=== PATIENT | female | born 1955 | race Caucasian/White ===

== ENCOUNTER 2017-01-27 20:02 | Inpatient (IN) | payer BC, OTHER ==
[~2017-01-27] VITALS: Ht 149.9 cm; Wt 89.6 kg
[~2017-01-27 20:02] MED LIST: DAYQLIQ PO; INSDGI SC; INSUINJ14 SC; LIRA18IN INJ; SIMV20TA2 PO
[2017-01-27] MEDS ORDERED: SODIUM CHLORIDE 0.9% 1000ML 1,000 ML IV STA (21:47)
[2017-01-27] MEDS ORDERED: ONDANSETRON INJ 2 MG/ML 2 ML VIAL IV STA (21:47)
[2017-01-27] MEDS ORDERED: MoRPHine SULFATE 4 MG/ML 1 ML CARP\\VIAL IV STA (21:47)
[2017-01-27 22:08] LABS: BASO % 0.1 %; BASO ABS # 0.02 K/uL (0-0.2); COMPLETE YES; EOS % 0.2 %; HEMATOCRIT 44.3 % (37-47); IG% 0.3 %; LYMPH % 11.1 %; LYMPH ABS # 2.04 K/uL (1.2-3.4); MEAN CELL VOLUME 86.9 fL (80-100); MEAN CORPUSCULAR HEMOGLOBIN 28.4 pg (25-34); MEAN CORPUSCULAR HGB CONC 32.7 g/dl (32-36); MEAN PLATELET VOLUME 11.4 fL (7.4-10.4); MONO % 6.2 %; NEUT % 82.1 %; PLATELET COUNT 288 K/uL (130-400); WHITE BLOOD COUNT 18.41 K/uL (4.8-10.8)
[2017-01-27 22:25] LABS: BUN/CREATININE RATIO 14.2 (10-20); CREATININE 0.96 mg/dl (0.60-1.20); POTASSIUM 3.7 mmol/L (3.5-5.1)
[2017-01-27 22:27] LABS: CALCIUM 9.3 mg/dl (8.5-10.1)
[2017-01-27] MEDS ORDERED: LPT/20 PO (22:40)
--- NOTE | 2017-01-27 22:43 | DIAGNOSTIC IMAGING REPORT ---
ABDOMEN AND PELVIS CT WITHOUT CONTRAST CT DOSE: 1870.61 mGy.cm HISTORY: Pain abdominal pain, vomiting, history of colon surgery. No BM TECHNIQUE: Multiaxial CT images of the abdomen and pelvis were performed without the use of intravenous and oral contrast according to the standard department stone protocol. COMPARISON STUDY: None. FINDINGS: Lung bases are generally clear. Liver spleen and pancreas are unremarkable. The adrenal glands are normal. Prior cholecystectomy. The colonic bowel pattern is nonobstructive. There are findings of a mid sigmoid anastomotic site. There are findings of a small ventral hernia. There are several distended loops of small bowel in the anterior central abdominal region. Mild infiltrative change of the mesentery is noted at this site. These findings are potentially post operative and/or related to a partial small bowel obstructive process secondary to adhesions. Postoperative changes to the anterior abdominal wall are noted. There is no evidence for colonic distention. IMPRESSION: 1. Several mildly distended loops of small bowel in the anterior central abdominal region 2. These are associated with mild infiltrative change of the mesentery possibly on a postoperative basis as well as a small ventral hernia anteriorly raising the possibility of post procedural adhesions. 3. No evidence for colonic obstruction with postoperative changes noted in the mid sigmoid. Electronically signed by: Cheo Tovar M.D. 01/27/2017 10:42 PM Dictated Date/Time: 01/27/2017 10:36 PM
[2017-01-27] MEDS ORDERED: INSU3INJ3 SQ (22:44)
[2017-01-27] MEDS ORDERED: LORAZEPAM 2 MG/ML 1 ML VIAL IV STA (23:05)
[2017-01-27 23:49] LABS: URINE APPEARANCE CLEAR (CLEAR); URINE BILIRUBIN NEG (NEG); URINE COLOR YELLOW; URINE NITRITE NEG (NEG); URINE SPECIFIC GRAVITY 1.016 (1.000-1.030); UROBILINOGEN NEG (NEG); ZZUR CULT IF INDIC CLEAN CATCH YES
[2017-01-27 23:50] LABS: MANUAL MICROSCOPIC REQUIRED? YES; REVIEW REQ? NO
--- NOTE | 2017-01-27 23:55 | EMERGENCY ROOM VISIT NOTE ---
History Report prepared by Carlota: Jordyn Grande Under the Supervision of: Dr. Max Dueñas M.D. First contact with patient: 21:39 Chief Complaint: ABDOMINAL PAIN Stated Complaint: VOMITING,SEVERE ABD PAIN,HEADACHE History of Present Illness The patient is a 62 year old female who presents to the Emergency Room with complaints of persistent abdominal pain starting last night. Around midnight last night, she started vomiting. The nausea and vomiting comes in waves every couple of hours. Between the episodes of vomiting she is having abdominal pain on the right side. She took some Tylenol which did help a little. She had a headache. She denies any bloody stool, chest pain, or SOB. She has not been able to eat or drink well. She has not had a bowel movement in the last 2 days. She has a history of cholecystectomy and colorectal cancer. She denies any history of bowel obstruction. Her is not sick. Source of History: patient Onset: last night Position: abdomen Quality: other (pain) Timing: other (persistent) Modifying Factors (Relieving): tylenol Associated Symptoms: + headache, + nausea, + vomiting, No chest pain, No SOB , No hematochezia Review of Systems See HPI for pertinent positives & negatives. A total of 10 systems reviewed and were otherwise negative. Past Medical & Surgical Medical Problems: (1) Colorectal cancer (2) Diabetes (3) High cholesterol Surgical Problems: (1) History of hysterectomy (2) S/P cholecystectomy Family History Diabetes mellitus FHx: cancer FHx: gallbladder disease FHx: heart disease Hypertension Social History Smoking Status: Never Smoker Marital Status: Housing Status: lives with significant other Occupation Status: employed Current/Historical Medications Scheduled Atorvastatin (Atorvastatin Calcium), 10 MG PO HS Insulin Aspart (Novolog Penfill), 32 UNITS SC BID Insulin Aspart Penfill (Novolog Penfill), 44 SC QAM Insulin Detemir (Levemir Flextouch), 45 UNITS SQ HS Liraglutide (Victoza), 1.8 ML INJ QPM Allergies Coded Allergies: Iodinated Diagnostic Agents (Verified Allergy, Unknown, ANAPHYLAXIS, ) Metformin (Unverified Allergy, Unknown, DIARRHEA, 01/27/17) Sulfa Antibiotics (Verified Allergy, Unknown, HIVES, 01/27/17) Physical Exam Vital Signs Date Time Temp Pulse Resp B/P (MAP) Pulse Ox O2 Delivery O2 Flow Rate FiO2 01/28/17 01:30 93 18 165/90 94 Room Air 01/27/17 23:31 87 18 96 Room Air 01/27/17 23:24 84 18 170/84 93 Room Air 01/27/17 22:10 74 18 180/104 95 Room Air 01/27/17 20:09 36.8 91 18 180/93 96 Room Air Physical Exam GENERAL: Patient is uncomfortable appearing and in moderate distress. HEENT: No acute trauma, normocephalic atraumatic, mucous membranes moist, no nasal congestion, no scleral icterus. NECK: No stridor, no adenopathy, no meningismus, trachea is midline. LUNGS: No dyspnea. Clear to auscultation and equal bilaterally. No wheeze, no rhonchi. HEART: Regular rate and rhythm. No murmurs, rubs, gallops appreciated. ABDOMEN: Soft, tenderness to palpation in the RUQ, bowel sounds hyperactive, no masses appreciated, no peritonitis. BACK: No midline tenderness, no CVA tenderness EXTREMITIES: Normal motion all extremities, no cyanosis, no edema. NEUROLOGIC: Alert and oriented, no acute motor or sensory deficits, no focal weakness, cranial nerves grossly intact. SKIN: No rash, no jaundice, no diaphoresis. Medical Decision & Procedures ER Provider Diagnostic Interpretation: Radiology results and stated below per my review and radiologist interpretation: ABDOMEN AND PELVIS CT WITHOUT CONTRAST CT DOSE: 1870.61 mGy.cm HISTORY: Pain abdominal pain, vomiting, history of colon surgery. No BM TECHNIQUE: Multiaxial CT images of the abdomen and pelvis were performed without the use of intravenous and oral contrast according to the standard department stone protocol. COMPARISON STUDY: None. FINDINGS: Lung bases are generally clear. Liver spleen and pancreas are unremarkable. The adrenal glands are normal. Prior cholecystectomy. The colonic bowel pattern is nonobstructive. There are findings of a mid sigmoid anastomotic site. There are findings of a small ventral hernia. There are several distended loops of small bowel in the anterior central abdominal region. Mild infiltrative change of the mesentery is noted at this site. These findings are potentially post operative and/or related to a partial small bowel obstructive process secondary to adhesions. Postoperative changes to the anterior abdominal wall are noted. There is no evidence for colonic distention. IMPRESSION: 1. Several mildly distended loops of small bowel in the anterior central abdominal region 2. These are associated with mild infiltrative change of the mesentery possibly on a postoperative basis as well as a small ventral hernia anteriorly raising the possibility of post procedural adhesions. 3. No evidence for colonic obstruction with postoperative changes noted in the mid sigmoid. Electronically signed by: Cheo Tovar M.D. 01/27/2017 10:42 PM Dictated Date/Time: 01/27/2017 10:36 PM Laboratory Results 01/27/17 21:35 Red Blood Count 5.10, Mean Corpuscular Volume 86.9, Mean Corpuscular Hemoglobin 28.4, Mean Corpuscular Hemoglobin Concent 32.7, Mean Platelet Volume 11.4, Neutrophils (%) (Auto) 82.1, Lymphocytes (%) (Auto) 11.1, Monocytes (%) (Auto) 6.2, Eosinophils (%) (Auto) 0.2, Basophils (%) (Auto) 0.1, Neutrophils # (Auto) 15.12, Lymphocytes # (Auto) 2.04, Monocytes # (Auto) 1.14, Eosinophils # (Auto) 0.04, Basophils # (Auto) 0.02 01/27/17 21:35 Test 01/27/17 21:35 01/27/17 23:30 White Blood Count 18.41 K/uL (4.8-10.8) Red Blood Count 5.10 M/uL (4.2-5.4) Hemoglobin 14.5 g/dL (12.0-16.0) Hematocrit 44.3 % (37-47) Mean Corpuscular Volume 86.9 fL (80-100) Mean Corpuscular Hemoglobin 28.4 pg (25-34) Mean Corpuscular Hemoglobin Concent 32.7 g/dl (32-36) Platelet Count 288 K/uL (130-400) Mean Platelet Volume 11.4 fL (7.4-10.4) Neutrophils (%) (Auto) 82.1 % Lymphocytes (%) (Auto) 11.1 % Monocytes (%) (Auto) 6.2 % Eosinophils (%) (Auto) 0.2 % Basophils (%) (Auto) 0.1 % Neutrophils # (Auto) 15.12 K/uL (1.4-6.5) Lymphocytes # (Auto) 2.04 K/uL (1.2-3.4) Monocytes # (Auto) 1.14 K/uL (0.11-0.59) Eosinophils # (Auto) 0.04 K/uL (0-0.5) Basophils # (Auto) 0.02 K/uL (0-0.2) RDW Standard Deviation 47.2 fL (36.4-46.3) RDW Coefficient of Variation 14.8 % (11.5-14.5) Immature Granulocyte % (Auto) 0.3 % Immature Granulocyte # (Auto) 0.05 K/uL (0.00-0.02) Anion Gap 11.0 mmol/L (3-11) Est Creatinine Clear Calc Drug Dose 59.8 ml/min Estimated GFR () 73.5 Estimated GFR (Non- 63.4 BUN/Creatinine Ratio 14.2 (10-20) Calcium Level 9.3 mg/dl (8.5-10.1) Total Bilirubin 0.5 mg/dl (0.2-1) Direct Bilirubin 0.1 mg/dl (0-0.2) Aspartate Amino Transf (AST/SGOT) 14 U/L (15-37) Alanine Aminotransferase (ALT/SGPT) 25 U/L (12-78) Alkaline Phosphatase 127 U/L (45-117) Total Protein 8.4 gm/dl (6.4-8.2) Albumin 3.8 gm/dl (3.4-5.0) Lipase 122 U/L (73-393) Urine Color YELLOW Urine Appearance CLEAR (CLEAR) Urine pH 5.0 (4.5-7.5) Urine Specific [place] 1.016 (1.000-1.030) Urine Protein NEG (NEG) Urine Glucose (UA) NEG (NEG) Urine Ketones NEG (NEG) Urine Occult Blood NEG (NEG) Urine Nitrite NEG (NEG) Urine Bilirubin NEG (NEG) Urine Urobilinogen NEG (NEG) Urine Leukocyte Esterase NEG (NEG) Urine RBC (Auto) /hpf (0-4) Urine RBC 0-4 /hpf (0-4) Urine WBC 1-5 /hpf (0-5) Urine Epithelial Cells 0-5 /lpf (0-5) Urine Bacteria NEG (NEG) Laboratory results as reviewed by me. Medications Administered Medications (Trade) Dose Ordered Sig/Fabrice Route Start Time Stop Time Status Last Admin Dose Admin Morphine Sulfate (MoRPHine SULFATE INJ) 4 mg NOW STAT IV 01/27/17 21:47 01/27/17 21:50 DC 01/27/17 22:06 4 MG Ondansetron HCl (Zofran Inj) 4 mg NOW STAT IV 01/27/17 21:47 01/27/17 21:50 DC 01/27/17 22:06 4 MG Sodium Chloride 1,000 ml @ 999 mls/hr Q1H1M STAT IV 01/27/17 21:47 01/27/17 22:47 DC 01/27/17 22:06 999 MLS/HR Lorazepam (Ativan Inj) 0.5 mg NOW STAT IV 01/27/17 23:05 01/27/17 23:06 DC 01/27/17 23:18 0.5 MG ED Course 2140: The patient was evaluated in room A9B. A complete history and physical exam was performed. 2146: NSS 1000 ml @ 999 mls/hr IV, Zofran Inj 4 mg IV, Morphine Sulfate 4 mg IV. 2300: I reevaluated the patient. She is agreeable to NG tube and requests some Ativan prior. She is agreeable to coming in. Reexamination shows a nonsurgical abdomen. I discussed results and treatment plan with the patient. She verbalized understanding and agreement with the treatment plan. The patient will be evaluated for further management. 2305: Lorazepam 0.5 mg IV. 2326: I discussed the patient's case with Dr. Goddard, [facility] hospitalist service. The patient will be evaluated for further management. Medical Decision Differential: Appendicitis, Diverticulitis, PUD/Gastritis, Biliary Pathology, UTI, Pyelonephritis, Renal Colic, Bowel Obstruction, Aortic Pathology, Acute Coronary Syndrome, amongst other pathologies entertained. Medication Reconciliation: I attest that I have personally reviewed the patient 's current medication list. Blood Pressure Screening: Patient was found to have a slightly elevated blood pressure due to circumstances. I do not believe that the patient requires hypertension monitoring. Pleasant 62 yr old female arrives with complaint of abdominal discomfort, vomiting and no BM in last 2 days. History of colon ca with resection and remaining ventral hernia. CT consistent with SBO (discussed with radiology). She does not have severe nor intractable pain, does not have overtly surgical abdomen by examination and is feeling much better with above. I feel that conservative treatment reasonable to start out in this case and thus NG tube placed. Consults Time Called: [phone] Consulting Physician: Dr. Goddard [facility] hospitalist service Returned Call: [phone] Discussed the patient's case. The patient will be evaluated for further treatment and disposition. Impression Primary Impression: SBO (small bowel obstruction) Scribe Attestation The scribe's documentation has been prepared under my direction and personally reviewed by me in its entirety. I confirm that the note above accurately reflects all work, treatment, procedures, and medical decision making performed by me. Departure Information Dispostion Being Evaluated By Hospitalist Referrals Day Mixon M.D. (PCP) Patient Instructions My [facility]
[2017-01-28] VITALS (7 sets, daily range): BP systolic 155–179; BP diastolic 85–93; PULSE 73–90; TEMP 36.4–36.5; O2SAT 93–97; Ht 149.9 cm; Wt 89.6 kg
[2017-01-28 00:08] LABS: URINE RBC 0-4 /hpf (0-4)
[2017-01-28 00:09] LABS: URINE BACTERIA NEG (NEG)
[2017-01-28] MEDS ORDERED: ONDANSETRON INJ 2 MG/ML 2 ML VIAL IV PRN (01:45)
[2017-01-28] MEDS ORDERED: POLYETHYLENE (MIRALAX) 17 GM PACK PO PRN (01:45)
[2017-01-28] MEDS ORDERED: ACETAMINOPHEN 325 MG TAB PO PRN (01:45)
[2017-01-28] MEDS: METRONIDAZOLE / NSS 500 MG in PREMIXED NSS 100 ML IV SCH ×2 (03:17→11:41)
[2017-01-28] MEDS: SODIUM CHLORIDE 0.9% 1000ML 1,000 ML IV SCH ×2 (03:17→13:30)
[2017-01-28] MEDS: CIPROFLOXACIN / D5W 400 MG in PREMIXED IN D5W 200 ML IV SCH ×2 (04:28→16:28)
[2017-01-28 06:09] LABS: PROTHROMBIN TIME (PATIENT) 10.7 SECONDS (9.0-12.0)
[2017-01-28 06:55] LABS: BASO % 0.1 %; BASO ABS # 0.02 K/uL (0-0.2); COMPLETE YES; EOS % 1.2 %; HEMATOCRIT 37.9 % (37-47); IG% 0.2 %; LYMPH ABS # 3.15 K/uL (1.2-3.4); MEAN CELL VOLUME 86.7 fL (80-100); MEAN CORPUSCULAR HEMOGLOBIN 27.5 pg (25-34); MEAN CORPUSCULAR HGB CONC 31.7 g/dl (32-36); MEAN PLATELET VOLUME 10.5 fL (7.4-10.4); MONO % 6.4 %; NEUT % 69.1 %; PLATELET COUNT 220 K/uL (130-400); RED BLOOD COUNT 4.37 M/uL (4.2-5.4); WHITE BLOOD COUNT 13.72 K/uL (4.8-10.8)
--- NOTE | 2017-01-28 07:01 | History and Physical ---
History & Physical Date & Time of Service: Jan 28, 2017 at 06:40 Chief Complaint: SBO Primary Care Physician: Mery Gamez History of Present Illness Source: patient, family 62-year-old female with a past medical history of colorectal cancer, diabetes, hyperlipidemia presented to the ER with complaints of worsening abdominal pain which started yesterday. She also complains of nausea and vomiting, denied any diarrhea but has not had a bowel movement in 2 days. Has been passing gas. Denies any fevers or chills. Denies bright red bleeding per rectum or melena. Denies any chest pain, shortness of breath or palpitations. Past Medical/Surgical History Medical Problems: (1) Colorectal cancer Status: Resolved (2) Diabetes Status: Chronic (3) High cholesterol Status: Chronic Surgical Problems: (1) History of hysterectomy Status: Resolved (2) S/P cholecystectomy Status: Resolved Family History Diabetes mellitus FHx: cancer FHx: gallbladder disease FHx: heart disease Hypertension Social History Smoking Status: Never Smoker Marital Status: Occupational Status: employed Allergies Coded Allergies: Iodinated Diagnostic Agents (Verified Allergy, Unknown, ANAPHYLAXIS, ) Metformin (Unverified Allergy, Unknown, DIARRHEA, 01/27/17) Sulfa Antibiotics (Verified Allergy, Unknown, HIVES, 01/27/17) Home Medications Scheduled Atorvastatin (Atorvastatin Calcium), 10 MG PO HS Cholecalciferol (Vitamin D3), 2,000 INTER.UNIT PO QAM Ergocalciferol (Vitamin D 36556 Unit), 50,000 INTERUNIT PO WK Insulin Aspart (Novolog Penfill), 32 UNITS SC BID Insulin Aspart Penfill (Novolog Penfill), 44 SC QAM Insulin Detemir (Levemir Flextouch), 45 UNITS SQ HS Liraglutide (Victoza), 1.8 ML INJ QPM Review of Systems Constitutional: No fever, No chills Eyes: No worsening of vision ENT: No hearing loss Respiratory: No cough, No sputum Abdomen: + pain, + nausea, + vomiting, + constipation, No diarrhea Genitourinary - Female: No dysuria, No urinary frequency, No urinary urgency Neurologic: No memory loss Psychiatric: No depression symptoms Endocrine: No fatigue Hematologic / Lymphatic: No abnormal bleeding/bruising Physical Exam Vital Signs Date Time Temp Pulse Resp B/P (MAP) Pulse Ox O2 Delivery O2 Flow Rate FiO2 01/28/17 04:00 Room Air 01/28/17 03:10 88 93 01/28/17 02:30 36.4 90 18 171/93 94 Room Air 01/28/17 02:07 92 18 169/90 93 01/28/17 01:30 93 18 165/90 94 Room Air 01/27/17 23:31 87 18 96 Room Air 01/27/17 23:24 84 18 170/84 93 Room Air 01/27/17 22:10 74 18 180/104 95 Room Air 01/27/17 20:09 36.8 91 18 180/93 96 Room Air General Appearance: WD/WN, no apparent distress Head: normocephalic Eyes: normal inspection ENT: normal ENT inspection, hearing grossly normal, + pertinent finding ( nasogastric tube in place) Neck: supple Respiratory/Chest: chest non-tender, lungs clear Cardiovascular: regular rate, rhythm Abdomen/GI: normal bowel sounds, soft, + tenderness (mid to lower abdominal area) Extremities/Musculoskelatal: no pedal edema Neurologic/Psych: alert, normal mood/affect, oriented x 3 Diagnostics Laboratory Results Results Past 24 Hours Test 01/27/17 21:35 01/27/17 23:30 01/28/17 05:36 Range/Units White Blood Count 18.41 4.8-10.8 K/uL Red Blood Count 5.10 4.2-5.4 M/uL Hemoglobin 14.5 12.0-16.0 g/dL Hematocrit 44.3 37-47 % Mean Corpuscular Volume 86.9 80-100 fL Mean Corpuscular Hemoglobin 28.4 25-34 pg Mean Corpuscular Hemoglobin Concent 32.7 32-36 g/dl Platelet Count 288 130-400 K/uL Mean Platelet Volume 11.4 7.4-10.4 fL Neutrophils (%) (Auto) 82.1 % Lymphocytes (%) (Auto) 11.1 % Monocytes (%) (Auto) 6.2 % Eosinophils (%) (Auto) 0.2 % Basophils (%) (Auto) 0.1 % Neutrophils # (Auto) 15.12 1.4-6.5 K/uL Lymphocytes # (Auto) 2.04 1.2-3.4 K/uL Monocytes # (Auto) 1.14 0.11-0.59 K/uL Eosinophils # (Auto) 0.04 0-0.5 K/uL Basophils # (Auto) 0.02 0-0.2 K/uL RDW Standard Deviation 47.2 36.4-46.3 fL RDW Coefficient of Variation 14.8 11.5-14.5 % Immature Granulocyte % (Auto) 0.3 % Immature Granulocyte # (Auto) 0.05 0.00-0.02 K/uL Sodium Level 140 136-145 mmol/L Potassium Level 3.7 3.5-5.1 mmol/L Chloride Level 100 98-107 mmol/L Carbon Dioxide Level 29 21-32 mmol/L Anion Gap 11.0 3-11 mmol/L Blood Urea Nitrogen 14 7-18 mg/dl Creatinine 0.96 0.60-1.20 mg/dl Est Creatinine Clear Calc Drug Dose 59.8 ml/min Estimated GFR () 73.5 Estimated GFR (Non- 63.4 BUN/Creatinine Ratio 14.2 10-20 Random Glucose 158 70-99 mg/dl Calcium Level 9.3 8.5-10.1 mg/dl Total Bilirubin 0.5 0.2-1 mg/dl Direct Bilirubin 0.1 0-0.2 mg/dl Aspartate Amino Transf (AST/SGOT) 14 15-37 U/L Alanine Aminotransferase (ALT/SGPT) 25 12-78 U/L Alkaline Phosphatase 127 45-117 U/L Total Protein 8.4 6.4-8.2 gm/dl Albumin 3.8 3.4-5.0 gm/dl Lipase 122 73-393 U/L Urine Color YELLOW Urine Appearance CLEAR CLEAR Urine pH 5.0 4.5-7.5 Urine Specific [place] 1.016 1.000-1.030 Urine Protein NEG NEG Urine Glucose (UA) NEG NEG Urine Ketones NEG NEG Urine Occult Blood NEG NEG Urine Nitrite NEG NEG Urine Bilirubin NEG NEG Urine Urobilinogen NEG NEG Urine Leukocyte Esterase NEG NEG Urine RBC (Auto) 0-4 /hpf Urine RBC 0-4 0-4 /hpf Urine WBC 1-5 0-5 /hpf Urine Epithelial Cells 0-5 0-5 /lpf Urine Bacteria NEG NEG Prothrombin Time 10.7 9.0-12.0 SECONDS Prothromb Time International Ratio 1.0 0.9-1.1 Microbiology Results 01/27/17 Urine Culture, Received Pending Diagnostic Radiology CT DOSE: 1870.61 mGy.cm HISTORY: Pain abdominal pain, vomiting, history of colon surgery. No BM TECHNIQUE: Multiaxial CT images of the abdomen and pelvis were performed without the use of intravenous and oral contrast according to the standard department stone protocol. COMPARISON STUDY: None. FINDINGS: Lung bases are generally clear. Liver spleen and pancreas are unremarkable. The adrenal glands are normal. Prior cholecystectomy. The colonic bowel pattern is nonobstructive. There are findings of a mid sigmoid anastomotic site. There are findings of a small ventral hernia. There are several distended loops of small bowel in the anterior central abdominal region. Mild infiltrative change of the mesentery is noted at this site. These findings are potentially post operative and/or related to a partial small bowel obstructive process secondary to adhesions. Postoperative changes to the anterior abdominal wall are noted. There is no evidence for colonic distention. IMPRESSION: 1. Several mildly distended loops of small bowel in the anterior central abdominal region 2. These are associated with mild infiltrative change of the mesentery possibly on a postoperative basis as well as a small ventral hernia anteriorly raising the possibility of post procedural adhesions. 3. No evidence for colonic obstruction with postoperative changes noted in the mid sigmoid. Electronically signed by: Cheo Tovar M.D. 01/27/2017 10:42 PM Dictated Date/Time: 01/27/2017 10:36 PM Impression Assessment and Plan 62-year-old female with a past medical history of colorectal cancer, diabetes, hyperlipidemia presented to the ER with complaints of worsening abdominal pain which started yesterday. Abdominal pain associated with nausea and vomiting. CT scan revealed findings suggestive of small bowel obstruction. Small bowel obstruction: - CT abd: 1. Several mildly distended loops of small bowel in the anterior central abdominal region 2. These are associated with mild infiltrative change of the mesentery possibly on a postoperative basis as well as a small ventral hernia anteriorly raising the possibility of post procedural adhesions. 3. No evidence for colonic obstruction with postoperative changes noted in the mid sigmoid. - NG tube in place - Follow serial films for resolution - Consider Gen. surgery consult - Prophylactic treatment with Cipro and Flagyl considering elevated white count ( which could also be stress induced) Elevated blood pressure: -Patient does not have a history of hypertension - Blood pressure is elevated on admission likely secondary to pain, and anxiety - Continue to monitor Diabetes mellitus: - Hold home meds - Insulin sliding scale DVT prophylaxis: Heparin subcutaneous Full code Disposition: Admitted to [facility] Level of Care Med/Surg Advanced Directives Existing Living Will: No Existing Power of Cigar Head Piercer: No Resuscitation Status FULL RESUSCITATION VTE Prophylaxis VTE Risk Assessment Done? Y/N: Yes Risk Level: Moderate Given or contraindicated: Unfractionated heparin SQ Resident Tracking Resident Involvement: Resident Care Provided Care Provided: Adult Hospital Medicine Assessment and Plan Attending Addendum: I have physically seen and examined this patient, have directed their medical care, have supervised the medical residents activities, and agree with the H&P as noted above, with the following changes: NONE
[2017-01-28 07:21] LABS: ALB/GLOB RATIO 0.9 (0.9-2); BUN/CREATININE RATIO 16.1 (10-20); CREATININE 0.75 mg/dl (0.60-1.20); POTASSIUM 3.9 mmol/L (3.5-5.1)
[2017-01-28] MEDS: HEPARIN SOD 5000 UNIT/0.5 ML CARP SQ SCH ×3 (08:30→22:26)
--- NOTE | 2017-01-28 08:52 | Family Medicine Progress Note ---
Progress Note Date of Service Jan 28, 2017. Subjective Pt admitted on this date - please refer to Dr Goddard's note for full H&P Checked on pt at 8AM, she was doing ok. Reported pain had improved. Additional Comments: ROS negative unless noted in HPI Medications Current Inpatient Medications Medications (Trade) Dose Ordered Sig/Fabrice Route Start Time Stop Time Status Last Admin Dose Admin Atorvastatin Calcium (Lipitor Tab) 10 mg HS PO 01/28/17 21:00 02/27/17 20:59 Heparin Sodium (Porcine) (Heparin Sq 5000 Unit/0.5ml) 5,000 unit Q8 SQ 01/28/17 06:00 02/27/17 05:59 Sodium Chloride 1,000 ml @ 100 mls/hr Q10H IV 01/28/17 02:45 02/27/17 02:44 01/28/17 03:17 100 MLS/HR Acetaminophen (Tylenol Tab) 650 mg Q4H PRN PO 01/28/17 01:45 02/27/17 01:44 Ondansetron HCl (Zofran Inj) 4 mg Q6H PRN IV 01/28/17 01:45 02/27/17 01:44 Polyethylene (Miralax Powder Packet) 17 gm DAILY PRN PO 01/28/17 01:45 02/27/17 01:44 Ciprofloxacin/ Dextrose 400 mg/ Prmx 200 ml @ 100 mls/hr Q12H IV 01/28/17 04:00 02/07/17 03:59 01/28/17 04:28 100 MLS/HR Metronidazole 500 mg/Prmx 100 ml @ 100 mls/hr Q8H IV 01/28/17 03:00 02/07/17 02:59 01/28/17 03:17 100 MLS/HR Objective Vital Signs Date Time Temp Pulse Resp B/P (MAP) Pulse Ox O2 Delivery O2 Flow Rate FiO2 01/28/17 07:06 36.4 85 22 168/90 (116) 94 BiPAP 01/28/17 04:00 Room Air 01/28/17 03:10 88 93 01/28/17 02:30 36.4 90 18 171/93 94 Room Air 01/28/17 02:07 92 18 169/90 93 01/28/17 01:30 93 18 165/90 94 Room Air 01/27/17 23:31 87 18 96 Room Air 01/27/17 23:24 84 18 170/84 93 Room Air 01/27/17 22:10 74 18 180/104 95 Room Air 01/27/17 20:09 36.8 91 18 180/93 96 Room Air Physical Exam Notes: GENERAL: Awake, alert, well-appearing, in no acute distress HENT: Normocephalic, atraumatic. Oropharynx unremarkable. NG tube present with dark green drainage. EYES: Normal conjunctiva. Sclera non-icteric. NECK: Supple. No nuchal rigidity. FROM. No JVD. RESPIRATORY: Clear to auscultation. CARDIAC: Regular rate, normal rhythm. Extremities warm and well perfused. Pulses equal. ABDOMEN: Soft, distended. No tenderness to palpation. No rebound or guarding. No masses. Soft bowel sounds. MUSCULOSKELETAL: Chest examination reveals no tenderness. LOWER EXTREMITIES: Calves are equal size bilaterally and non-tender. No edema. No discoloration. NEURO: Normal sensorium. No sensory or motor deficits noted. SKIN: No rash or jaundice noted. Laboratory Results Last 24 Hours Test 01/27/17 21:35 01/27/17 23:30 01/28/17 05:36 01/28/17 07:07 White Blood Count 18.41 K/uL 13.72 K/uL Red Blood Count 5.10 M/uL 4.37 M/uL Hemoglobin 14.5 g/dL 12.0 g/dL Hematocrit 44.3 % 37.9 % Mean Corpuscular Volume 86.9 fL 86.7 fL Mean Corpuscular Hemoglobin 28.4 pg 27.5 pg Mean Corpuscular Hemoglobin Concent 32.7 g/dl 31.7 g/dl Platelet Count 288 K/uL 220 K/uL Mean Platelet Volume 11.4 fL 10.5 fL Neutrophils (%) (Auto) 82.1 % 69.1 % Lymphocytes (%) (Auto) 11.1 % 23.0 % Monocytes (%) (Auto) 6.2 % 6.4 % Eosinophils (%) (Auto) 0.2 % 1.2 % Basophils (%) (Auto) 0.1 % 0.1 % Neutrophils # (Auto) 15.12 K/uL 9.48 K/uL Lymphocytes # (Auto) 2.04 K/uL 3.15 K/uL Monocytes # (Auto) 1.14 K/uL 0.88 K/uL Eosinophils # (Auto) 0.04 K/uL 0.16 K/uL Basophils # (Auto) 0.02 K/uL 0.02 K/uL RDW Standard Deviation 47.2 fL 47.4 fL RDW Coefficient of Variation 14.8 % 14.8 % Immature Granulocyte % (Auto) 0.3 % 0.2 % Immature Granulocyte # (Auto) 0.05 K/uL 0.03 K/uL Sodium Level 140 mmol/L 143 mmol/L Potassium Level 3.7 mmol/L 3.9 mmol/L Chloride Level 100 mmol/L 107 mmol/L Carbon Dioxide Level 29 mmol/L 29 mmol/L Anion Gap 11.0 mmol/L 7.0 mmol/L Blood Urea Nitrogen 14 mg/dl 12 mg/dl Creatinine 0.96 mg/dl 0.75 mg/dl Est Creatinine Clear Calc Drug Dose 59.8 ml/min 76.6 ml/min Estimated GFR () 73.5 99.0 Estimated GFR (Non- 63.4 85.4 BUN/Creatinine Ratio 14.2 16.1 Random Glucose 158 mg/dl 159 mg/dl Calcium Level 9.3 mg/dl 8.0 mg/dl Total Bilirubin 0.5 mg/dl 0.5 mg/dl Direct Bilirubin 0.1 mg/dl Aspartate Amino Transf (AST/SGOT) 14 U/L 17 U/L Alanine Aminotransferase (ALT/SGPT) 25 U/L 22 U/L Alkaline Phosphatase 127 U/L 97 U/L Total Protein 8.4 gm/dl 6.7 gm/dl Albumin 3.8 gm/dl 3.1 gm/dl Lipase 122 U/L Urine Color YELLOW Urine Appearance CLEAR Urine pH 5.0 Urine Specific [place] 1.016 Urine Protein NEG Urine Glucose (UA) NEG Urine Ketones NEG Urine Occult Blood NEG Urine Nitrite NEG Urine Bilirubin NEG Urine Urobilinogen NEG Urine Leukocyte Esterase NEG Urine RBC (Auto) /hpf Urine RBC 0-4 /hpf Urine WBC 1-5 /hpf Urine Epithelial Cells 0-5 /lpf Urine Bacteria NEG Prothrombin Time 10.7 SECONDS Prothromb Time International Ratio 1.0 Globulin 3.6 gm/dl Albumin/Globulin Ratio 0.9 Chemistry Specimen Hemolysis Bedside Glucose 140 mg/dl Assessment and Plan 62 yo F with SBO, likely from adhesions. Small bowel obstruction - NPO - IV fluids - NG tube Elevated BP - Continue to monitor, will not treat at this moment Concern for intraabdominal infection - Will discuss continuing abx with team Dispo: Transferring to Med/Surg today VTE: Heparin q8h, discussed ambulating which she can do as much as she wants Code status: Full Resident Physician Supervision Note: I interviewed and examined the patient. Discussed with Dr. Maurice and agree with findings and plan as documented in the note. Any exceptions or clarifications are listed here: None Documented By: Vinicio Pabon revisited late afternoon along w MS3 who had seen this morning around Dr Maurice's visit. pt notes feeling much better, no nausea, even a little hunger. still a good deal of NGT output. (+)small BM. ROS otherwise negative except for as above vitals noted nad breathing unlabored NGT w brownish liquid output, abdomen soft mildly distended surprisingly nontender (MS3 who had seen her this AM noted a huge difference compared to tenderness to even light touch) no palpable mass/ knot/tenderness at area of ventral hernia, no guarding/rebound/rigidity SBO - almost certainly adhesional - continue NGT drainage for now. likely dc tomorrow Resident Tracking Resident Involvement: Resident Care Provided Care Provided: Adult Hospital Medicine
[2017-01-28] MEDS ORDERED: NURSING VERBAL MED ORDER ONE (09:45)
[2017-01-28] MEDS: ACETAMINOPHEN IV 1000MG/100ML IV PRN ×2 (10:32→18:25)
--- NOTE | 2017-01-28 12:14 | Medical Student: [facility] ---
Med Student Progress Note Date of Service Jan 28, 2017. Subjective Pt evaluation today including: conversation w/ patient Pain: Lower abdomen: 2-3/10 Voiding: no incontinence, voiding difficulty Patient is a 62yo female with history of colorectal carcinoma, well controlled diabetes, and hyperlipidemia who has had worsening abdominal pain since 01/26. Patient also noted she has had increasing abdominal distension. mild dull occipital headache, weight gain of approx 10-15lbs, and poor glycemic control ( avg. 200s) over the last 3 weeks. Pain is described as dull, did not improve with attempted defecation or acetaminophen. Patient states she has had several episodes of nausea and vomiting which briefly alleviated pain. Patient reports constipation x2 days although she has been able to pass gas. Patient admitted for partial small bowel obstruction work-up. Today, patient reports significant improvement with pain rated 2-3/10 since NG tube placement that has also decreased abdominal distension. Patient feels as if she has more energy than usual recently although does report continued fatigue. She says she had CPAP last night and slept very well. She denies nausea , vomiting, urinary changes, edema, fever, chills, night sweats, tachycardia, and dizziness. Continues to have decreased appetite and aversion to food smells this am. Review of Systems Constitutional: + see HPI Respiratory: + see HPI Cardiac: No chest pain, No orthopnea, No edema, No palpitations Abdomen: + see HPI, + pain, + constipation, No nausea, No vomiting, No diarrhea Female : No dysuria, No urinary frequency, No hematuria, No incontinence Endo: + fatigue, No excessive thirst, No excessive urination All Other Systems: Reviewed and Negative Objective Vital Signs Date Time Temp Pulse Resp B/P (MAP) Pulse Ox O2 Delivery O2 Flow Rate FiO2 01/28/17 11:16 36.4 79 18 179/91 (120) 95 Room Air 155/91 (112) 01/28/17 08:00 Room Air 01/28/17 07:06 36.4 85 22 168/90 (116) 94 BiPAP 01/28/17 04:00 Room Air 01/28/17 03:10 88 93 01/28/17 02:30 36.4 90 18 171/93 94 Room Air 01/28/17 02:07 92 18 169/90 93 01/28/17 01:30 93 18 165/90 94 Room Air 01/27/17 23:31 87 18 96 Room Air 01/27/17 23:24 84 18 170/84 93 Room Air 01/27/17 22:10 74 18 180/104 95 Room Air 01/27/17 20:09 36.8 91 18 180/93 96 Room Air Physical Exam General Appearance: WD/WN, no apparent distress, + obese Respiratory/Chest: chest non-tender, lungs clear, normal breath sounds, no respiratory distress, no accessory muscle use Cardiovascular: regular rate, rhythm, no edema, no gallop, no JVD, no murmur Abdomen: soft, + distended, + tenderness (Most significant in RUQ) Neurologic/Psychiatric: alert, normal mood/affect, oriented x 3 Skin: normal color, warm/dry, no rash Comments: Imaging FINDINGS: Lung bases are generally clear. Liver spleen and pancreas are unremarkable. The adrenal glands are normal. Prior cholecystectomy. The colonic bowel pattern is nonobstructive. There are findings of a mid sigmoid anastomotic site. There are findings of a small ventral hernia. There are several distended loops of small bowel in the anterior central abdominal region. Mild infiltrative change of the mesentery is noted at this site. These findings are potentially post operative and/or related to a partial small bowel obstructive process secondary to adhesions. Postoperative changes to the anterior abdominal wall are noted. There is no evidence for colonic distention. IMPRESSION: 1. Several mildly distended loops of small bowel in the anterior central abdominal region 2. These are associated with mild infiltrative change of the mesentery possibly on a postoperative basis as well as a small ventral hernia anteriorly raising the possibility of post procedural adhesions. 3. No evidence for colonic obstruction with postoperative changes noted in the mid sigmoid. Laboratory Results Last 24 Hours Test 01/27/17 21:35 01/27/17 23:30 01/28/17 05:36 01/28/17 07:07 White Blood Count 18.41 K/uL 13.72 K/uL Red Blood Count 5.10 M/uL 4.37 M/uL Hemoglobin 14.5 g/dL 12.0 g/dL Hematocrit 44.3 % 37.9 % Mean Corpuscular Volume 86.9 fL 86.7 fL Mean Corpuscular Hemoglobin 28.4 pg 27.5 pg Mean Corpuscular Hemoglobin Concent 32.7 g/dl 31.7 g/dl Platelet Count 288 K/uL 220 K/uL Mean Platelet Volume 11.4 fL 10.5 fL Neutrophils (%) (Auto) 82.1 % 69.1 % Lymphocytes (%) (Auto) 11.1 % 23.0 % Monocytes (%) (Auto) 6.2 % 6.4 % Eosinophils (%) (Auto) 0.2 % 1.2 % Basophils (%) (Auto) 0.1 % 0.1 % Neutrophils # (Auto) 15.12 K/uL 9.48 K/uL Lymphocytes # (Auto) 2.04 K/uL 3.15 K/uL Monocytes # (Auto) 1.14 K/uL 0.88 K/uL Eosinophils # (Auto) 0.04 K/uL 0.16 K/uL Basophils # (Auto) 0.02 K/uL 0.02 K/uL RDW Standard Deviation 47.2 fL 47.4 fL RDW Coefficient of Variation 14.8 % 14.8 % Immature Granulocyte % (Auto) 0.3 % 0.2 % Immature Granulocyte # (Auto) 0.05 K/uL 0.03 K/uL Sodium Level 140 mmol/L 143 mmol/L Potassium Level 3.7 mmol/L 3.9 mmol/L Chloride Level 100 mmol/L 107 mmol/L Carbon Dioxide Level 29 mmol/L 29 mmol/L Anion Gap 11.0 mmol/L 7.0 mmol/L Blood Urea Nitrogen 14 mg/dl 12 mg/dl Creatinine 0.96 mg/dl 0.75 mg/dl Est Creatinine Clear Calc Drug Dose 59.8 ml/min 76.6 ml/min Estimated GFR () 73.5 99.0 Estimated GFR (Non- 63.4 85.4 BUN/Creatinine Ratio 14.2 16.1 Random Glucose 158 mg/dl 159 mg/dl Calcium Level 9.3 mg/dl 8.0 mg/dl Total Bilirubin 0.5 mg/dl 0.5 mg/dl Direct Bilirubin 0.1 mg/dl Aspartate Amino Transf (AST/SGOT) 14 U/L 17 U/L Alanine Aminotransferase (ALT/SGPT) 25 U/L 22 U/L Alkaline Phosphatase 127 U/L 97 U/L Total Protein 8.4 gm/dl 6.7 gm/dl Albumin 3.8 gm/dl 3.1 gm/dl Lipase 122 U/L Urine Color YELLOW Urine Appearance CLEAR Urine pH 5.0 Urine Specific [place] 1.016 Urine Protein NEG Urine Glucose (UA) NEG Urine Ketones NEG Urine Occult Blood NEG Urine Nitrite NEG Urine Bilirubin NEG Urine Urobilinogen NEG Urine Leukocyte Esterase NEG Urine RBC (Auto) /hpf Urine RBC 0-4 /hpf Urine WBC 1-5 /hpf Urine Epithelial Cells 0-5 /lpf Urine Bacteria NEG Prothrombin Time 10.7 SECONDS Prothromb Time International Ratio 1.0 Globulin 3.6 gm/dl Albumin/Globulin Ratio 0.9 Chemistry Specimen Hemolysis Bedside Glucose 140 mg/dl Test 01/28/17 11:31 Bedside Glucose 115 mg/dl Medications Current Inpatient Medications Medications (Trade) Dose Ordered Sig/Fabrice Route Start Time Stop Time Status Last Admin Dose Admin Atorvastatin Calcium (Lipitor Tab) 10 mg HS PO 01/28/17 21:00 02/27/17 20:59 Heparin Sodium (Porcine) (Heparin Sq 5000 Unit/0.5ml) 5,000 unit Q8 SQ 01/28/17 06:00 02/27/17 05:59 01/28/17 08:30 5,000 UNIT Sodium Chloride 1,000 ml @ 100 mls/hr Q10H IV 01/28/17 02:45 02/27/17 02:44 01/28/17 03:17 100 MLS/HR Acetaminophen (Tylenol Tab) 650 mg Q4H PRN PO 01/28/17 01:45 02/27/17 01:44 Ondansetron HCl (Zofran Inj) 4 mg Q6H PRN IV 01/28/17 01:45 02/27/17 01:44 Polyethylene (Miralax Powder Packet) 17 gm DAILY PRN PO 01/28/17 01:45 02/27/17 01:44 Ciprofloxacin/ Dextrose 400 mg/ Prmx 200 ml @ 100 mls/hr Q12H IV 01/28/17 04:00 02/07/17 03:59 01/28/17 04:28 100 MLS/HR Metronidazole 500 mg/Prmx 100 ml @ 100 mls/hr Q8H IV 01/28/17 03:00 02/07/17 02:59 01/28/17 11:41 100 MLS/HR Acetaminophen 100 ml @ 400 mls/hr Q6H PRN IV 01/28/17 09:45 02/27/17 09:44 01/28/17 10:32 400 MLS/HR Assessment and Plan Assessment and Plan: Abdominal pain secondary to possible partial bowel obstruction - Acetaminophen PRN for pain control - Nasogastric tube decompression - Continue NPO - IV fluid therapy - Ondansetron PRN - Monitor electrolyte levels Increased WBC - Ceftriaxone - Metronidazole - Vital monitoring Diabetes II - Continue medications as prescribed - Glucose monitoring to ensure downward trending and improved control - Diabetic diet with D/C NPO Continued [facility] stay due to: inadequate po fluid intake, voiding difficulties, multiple IV medications needed
[2017-01-28] MEDS: SODIUM CHLOR 0.45% + 20MEQ KCL 1,000 ML IV SCH (18:47)
[2017-01-28] MEDS: ATORVASTATIN 10 MG TAB PO SCH (19:38)
[2017-01-29] VITALS (9 sets, daily range): BP systolic 110–184; BP diastolic 65–102; PULSE 72–94; TEMP 36.2–37.6; O2SAT 92–97
[2017-01-29] MEDS: ACETAMINOPHEN IV 1000MG/100ML IV PRN ×3 (01:51→14:29)
[2017-01-29] MEDS: SODIUM CHLOR 0.45% + 20MEQ KCL 1,000 ML IV SCH ×2 (03:21→13:41)
[2017-01-29] MEDS: HEPARIN SOD 5000 UNIT/0.5 ML CARP SQ SCH ×3 (05:55→22:00)
[2017-01-29 06:45] LABS: BUN/CREATININE RATIO 13.3 (10-20); CALCIUM 8.2 mg/dl (8.5-10.1); CREATININE 0.57 mg/dl (0.60-1.20); POTASSIUM 3.8 mmol/L (3.5-5.1)
--- NOTE | 2017-01-29 10:22 | Family Medicine Progress Note ---
Progress Note Date of Service Jan 29, 2017. Subjective Pt evaluation today including: conversation w/ patient, physical exam Passing gas, is concerned she hasn't passed stool BP remains elevated at times Lots of output from NG tube, dark non-bilious Additional Comments: ROS negative unless noted in HPI Medications Current Inpatient Medications Medications (Trade) Dose Ordered Sig/Fabrice Route Start Time Stop Time Status Last Admin Dose Admin Atorvastatin Calcium (Lipitor Tab) 10 mg HS PO 01/28/17 21:00 02/27/17 20:59 Heparin Sodium (Porcine) (Heparin Sq 5000 Unit/0.5ml) 5,000 unit Q8 SQ 01/28/17 06:00 02/27/17 05:59 01/29/17 05:55 5,000 UNIT Acetaminophen (Tylenol Tab) 650 mg Q4H PRN PO 01/28/17 01:45 02/27/17 01:44 Ondansetron HCl (Zofran Inj) 4 mg Q6H PRN IV 01/28/17 01:45 02/27/17 01:44 Polyethylene (Miralax Powder Packet) 17 gm DAILY PRN PO 01/28/17 01:45 02/27/17 01:44 Acetaminophen 100 ml @ 400 mls/hr Q6H PRN IV 01/28/17 09:45 02/27/17 09:44 01/29/17 07:21 400 MLS/HR Potassium Chloride/Sodium Chloride 1,000 ml @ 100 mls/hr Q10H IV 01/28/17 17:30 02/27/17 17:29 01/29/17 03:21 100 MLS/HR Objective Vital Signs Date Time Temp Pulse Resp B/P (MAP) Pulse Ox O2 Delivery O2 Flow Rate FiO2 01/29/17 08:15 80 169/94 (119) 01/29/17 07:30 36.2 80 20 184/101 (128) 92 01/29/17 03:40 36.5 80 18 172/94 (120) 96 CPAP 01/29/17 00:00 CPAP 01/28/17 23:56 36.5 81 20 162/85 (110) 95 Room Air 01/28/17 19:40 36.4 73 19 167/91 (116) 97 Room Air 01/28/17 16:30 Room Air 01/28/17 16:16 36.4 75 18 164/85 (111) 96 Room Air 01/28/17 11:16 36.4 79 18 179/91 (120) 95 Room Air 155/91 (112) Physical Exam General Appearance: WD/WN, no apparent distress Eyes: normal inspection, PERRL ENT: hearing grossly normal Neck: supple, no JVD Respiratory/Chest: lungs clear, normal breath sounds, no respiratory distress Cardiovascular: regular rate, rhythm, no murmur Abdomen: normal bowel sounds (active), non tender, soft, + distended Extremities: non-tender, no pedal edema Neurologic/Psychiatric: alert, normal mood/affect, oriented x 3 Skin: no rash Laboratory Results Last 24 Hours Test 01/28/17 11:31 01/29/17 05:27 Bedside Glucose 115 mg/dl Sodium Level 143 mmol/L Potassium Level 3.8 mmol/L Chloride Level 106 mmol/L Carbon Dioxide Level 29 mmol/L Anion Gap 8.0 mmol/L Blood Urea Nitrogen 8 mg/dl Creatinine 0.57 mg/dl Est Creatinine Clear Calc Drug Dose 100.8 ml/min Estimated GFR () 115.2 Estimated GFR (Non- 99.4 BUN/Creatinine Ratio 13.3 Random Glucose 133 mg/dl Calcium Level 8.2 mg/dl 25-Hydroxy Vitamin D Total 10.0 ng/ml Assessment and Plan 62 yo F with SBO, day 2 of NG tube with drainage SBO: Remain NPO with IV fluids, No further Abx Vit D Deficiency: Will replace Vit D once taking PO Headaches: likely dehydration HTN: not in crisis, will continue to monitor, will need outpatient meds Code status: Full VTE: Heparin Dispo: Remain on Med/Surg another day, keep NG tube in place Resident Physician Supervision Note: I interviewed and examined the patient. Discussed with Dr. Maurice and agree with findings and plan as documented in the note. Any exceptions or clarifications are listed here: None Documented By: Vinicio Pabon feeling better, no nausea pain far better feels like she need to have BM but can 't. (+) flatus, and flatus increasing. NGT off to go to bathroom - no worsneing of pain or bloating during that time. ROS otherwise negative except for as above vitals noted nad breathing unlabored abd soft nd minimal tenderness hernia soft and only minimal tenderness as well no guarding/rigidity anywhere in abdomen. SBO - almost certainly adhesional. continue NGT clamp for now - if no worse hopefully can pull by end of day. ongoing supportive care. slow but steady progress. with all of above, does not appear hernia or malignancy related.
[2017-01-29] MEDS ORDERED: HydrALAZINE HCL 20 MG/ML VIAL IV. STA (11:53)
[2017-01-29] MEDS ORDERED: HydrALAZINE HCL 20 MG/ML VIAL IV. PRN (12:00)
--- NOTE | 2017-01-29 17:48 | Medical Student: [facility] ---
Med Student Progress Note Date of Service Jan 29, 2017. Subjective Pt evaluation today including: conversation w/ patient, physical exam, chart review, lab review, review of studies Pain: 0 PO Intake: NPO Voiding: no incontinence, voiding difficulty (urge is present) Patient is a 62yo female with history of colorectal cancer admitted for partial bowel obstruction secondary to surgical lesions. Patient reports that she is feeling "lousy" as she did not sleep well, developed a fairly significant headache overnight that resolved with IV acetaminophen, feels as if she needs to defecate but is unable, and has started to get hungry. She reports that her abdomen pain has improved, stating it is mildly "achy" but tolerable "probably not even a 1". She denies nausea, vomiting, SOB, tachycardia, or palpitations. Her abdominal distension continues to improve. Review of Systems Constitutional: + see HPI, + weight loss, No fever, No chills, No sweats, No weakness, No fatigue Respiratory: No shortness of breath, No dyspnea on exertion Cardiac: No chest pain, No edema, No palpitations Abdomen: + constipation, No nausea, No vomiting, No diarrhea Musculoskeletal: No swelling Neurologic: No weakness, No balance problems Heme: No night sweats All Other Systems: Reviewed and Negative Objective Vital Signs Date Time Temp Pulse Resp B/P (MAP) Pulse Ox O2 Delivery O2 Flow Rate FiO2 01/29/17 16:00 Room Air 01/29/17 14:47 36.3 90 20 170/93 (118) 97 01/29/17 13:40 94 166/85 (112) 01/29/17 11:14 36.7 86 20 172/96 (121) 94 01/29/17 08:40 Room Air 01/29/17 08:15 80 169/94 (119) 01/29/17 07:30 36.2 80 20 184/101 (128) 92 01/29/17 03:40 36.5 80 18 172/94 (120) 96 CPAP 01/29/17 00:00 CPAP 01/28/17 23:56 36.5 81 20 162/85 (110) 95 Room Air 01/28/17 19:40 36.4 73 19 167/91 (116) 97 Room Air Physical Exam General Appearance: WD/WN, no apparent distress Respiratory/Chest: chest non-tender, lungs clear, normal breath sounds, no respiratory distress, no accessory muscle use Cardiovascular: regular rate, rhythm, no edema, no gallop, no murmur Abdomen: soft, no organomegaly, no pulsatile mass, + distended (improved), + tenderness (improved - most severe RUQ) Neurologic/Psychiatric: no motor/sensory deficits, alert, normal mood/affect, oriented x 3 Skin: normal color, warm/dry, no rash Comments: Overnight, NG suction gathered 400ml. Between change of shift at 7am and 8:30 am , another 100ml was collected. Suction disconnected at approx. 11:30 am, patient denies nausea, worsening distension or pain. Nursing staff reported elevated BP reaching 180/100 and requested intervention, hydrochlorothiazide was ordered Laboratory Results Last 24 Hours Test 01/29/17 05:27 Sodium Level 143 mmol/L Potassium Level 3.8 mmol/L Chloride Level 106 mmol/L Carbon Dioxide Level 29 mmol/L Anion Gap 8.0 mmol/L Blood Urea Nitrogen 8 mg/dl Creatinine 0.57 mg/dl Est Creatinine Clear Calc Drug Dose 100.8 ml/min Estimated GFR () 115.2 Estimated GFR (Non- 99.4 BUN/Creatinine Ratio 13.3 Random Glucose 133 mg/dl Calcium Level 8.2 mg/dl 25-Hydroxy Vitamin D Total 10.0 ng/ml Medications Current Inpatient Medications Medications (Trade) Dose Ordered Sig/Fabrice Route Start Time Stop Time Status Last Admin Dose Admin Atorvastatin Calcium (Lipitor Tab) 10 mg HS PO 01/28/17 21:00 02/27/17 20:59 Heparin Sodium (Porcine) (Heparin Sq 5000 Unit/0.5ml) 5,000 unit Q8 SQ 01/28/17 06:00 02/27/17 05:59 01/30/17 14:52 5,000 UNIT Acetaminophen (Tylenol Tab) 650 mg Q4H PRN PO 01/28/17 01:45 02/27/17 01:44 Ondansetron HCl (Zofran Inj) 4 mg Q6H PRN IV 01/28/17 01:45 02/27/17 01:44 Polyethylene (Miralax Powder Packet) 17 gm DAILY PRN PO 01/28/17 01:45 02/27/17 01:44 Acetaminophen 100 ml @ 400 mls/hr Q6H PRN IV 01/28/17 09:45 02/27/17 09:44 01/29/17 14:29 400 MLS/HR Potassium Chloride/Sodium Chloride 1,000 ml @ 100 mls/hr Q10H IV 01/28/17 17:30 02/27/17 17:29 01/30/17 11:40 100 MLS/HR Hydralazine HCl (HydrALAZINE INJ) 10 mg Q6H PRN IV. 01/29/17 12:00 02/28/17 11:59 01/30/17 00:00 10 MG Ergocalciferol (Vitamin D Cap) 50,000 interunit Q7D@1400 PO 01/30/17 14:00 03/01/17 13:59 01/30/17 14:53 50,000 INTERUNIT Cholecalciferol (Vitamin D Tab) 2,000 inter.unit QAM PO 01/31/17 08:00 03/02/17 07:59 Assessment and Plan Assessment and Plan: Patient is improving with application of NG tube and fluid therapy. Distention and pain are greatly reduced, patient is beginning to feel hungry, and she has no symptoms associated with suction D/C. - Monitor patient with NG tube placed for worsening symptoms such as pain, nausea, vomiting, distension - if symptoms do develop, restart suction - If no symptoms develop, D/C tube after 5-6hrs from suction being D/C - Following NG removal, initiate clear liquid diet Continued [facility] stay due to: inadequate po fluid intake, voiding difficulties Discharge planning: home
[2017-01-29] MEDS: ATORVASTATIN 10 MG TAB PO SCH (21:00)
[2017-01-30] VITALS (8 sets, daily range): BP systolic 137–174; BP diastolic 76–92; PULSE 72–96; TEMP 36.6–37.1; O2SAT 93–97
[2017-01-30] MEDS: HEPARIN SOD 5000 UNIT/0.5 ML CARP SQ SCH ×3 (06:19→22:19)
[2017-01-30] MEDS: SODIUM CHLOR 0.45% + 20MEQ KCL 1,000 ML IV SCH ×3 (11:40→20:18)
--- NOTE | 2017-01-30 11:57 | Progress Note ---
Subjective Date of Service: Jan 30, 2017. Subjective Pt evaluation today including: conversation w/ patient, physical exam, chart review, lab review, review of inpatient medication list feeling better NGT out tolerating clears about 6 BM since yesterday feeling better belly doing better. no other new complaints Problem List Medical Problems: (1) SBO (small bowel obstruction) Status: Acute Review of Systems ROS otherwise negative except for as above Objective Vital Signs Date Time Temp Pulse Resp B/P (MAP) Pulse Ox O2 Delivery O2 Flow Rate FiO2 01/30/17 11:27 36.8 79 20 164/92 (116) 96 Room Air 01/30/17 07:39 36.8 92 20 137/77 (97) 94 01/30/17 07:35 95 Room Air 01/30/17 04:24 36.6 96 18 174/81 (112) 96 CPAP 01/29/17 23:59 Room Air 01/29/17 23:03 36.7 84 18 176/102 (126) 95 CPAP 01/29/17 22:03 81 93 01/29/17 19:29 37.6 92 16 172/84 (113) 94 01/29/17 16:00 Room Air 01/29/17 14:47 36.3 90 20 170/93 (118) 97 01/29/17 13:40 94 166/85 (112) Physical Exam General Appearance: no apparent distress Eyes: EOMI ENT: hearing grossly normal Neck: trachea midline Respiratory/Chest: no respiratory distress, no accessory muscle use Abdomen: non tender (mild distention vs baseline distention definitely down from my initial exam, minimal to no tenderness, midline hernia soft nontender no guarding no rebound), soft Extremities: normal range of motion Neurologic/Psychiatric: feed mixer II-XII nml as tested Skin: normal color, warm/dry Assessment and Plan 62 yo F with SBO, day 2 of NG tube with drainage SBO: almost certainly adhesional. clinically behaving as such. if it was malignancy related, doubt it would've improved. hernia did not appear incarcerated on CT, exam has been reassuring in that respect.NGT out. clears advance as tolerated. hopefully home today vs tomorrow depending on how she's progressing Vit D Deficiency: Will replace Vit D -- 2000IU D3 daily, 50,000 IU D2 weekly for ~12wks then recheck Headaches: likely dehydration, seems to be lessening HTN: continue to follow, continue home meds Code status: Full VTE: Heparin Continued [facility] stay due to: inadequate po fluid intake, voiding difficulties, multiple IV medications needed
[2017-01-30] MEDS ORDERED: ERGOCALCIFEROL 50,000 INTER.UNIT CAP PO SCH (14:00)
[2017-01-30] MEDS: ATORVASTATIN 10 MG TAB PO SCH (20:18)
[2017-01-30] MEDS ORDERED: GLUCOSE 40% GEL 15 GM TUBE PO PRN (21:30)
[2017-01-30] MEDS ORDERED: GLUCOSE 10 TABS/TUBE PO PRN (21:30)
[2017-01-30] MEDS ORDERED: GLUCAGON FOR INJ 1 MG VIAL SQ PRN (21:30)
[2017-01-30] MEDS ORDERED: DEXTROSE 50% 50 ML SYR IV PRN (21:30)
[2017-01-30] MEDS: INSULIN ASPART 100 UNITS/ML 3 ML PEN SC SCH (22:19)
[2017-01-31 01:01] VITALS: BP 152/67; PULSE 63; TEMP 36.5; O2SAT 97
[2017-01-31 04:00] VITALS: BP 146/67; PULSE 68; TEMP 36.4; O2SAT 95
[2017-01-31] MEDS: SODIUM CHLOR 0.45% + 20MEQ KCL 1,000 ML IV SCH (05:51)
[2017-01-31] MEDS: HEPARIN SOD 5000 UNIT/0.5 ML CARP SQ SCH (06:00)
[2017-01-31 06:13] LABS: HEMATOCRIT 39.2 % (37-47); MEAN CELL VOLUME 86.5 fL (80-100); MEAN CORPUSCULAR HEMOGLOBIN 26.9 pg (25-34); MEAN CORPUSCULAR HGB CONC 31.1 g/dl (32-36); MEAN PLATELET VOLUME 10.5 fL (7.4-10.4); PLATELET COUNT 212 K/uL (130-400); RED BLOOD COUNT 4.53 M/uL (4.2-5.4); WHITE BLOOD COUNT 9.85 K/uL (4.8-10.8)
[2017-01-31 07:26] VITALS: BP 185/84; PULSE 79; TEMP 36.5; O2SAT 92
[2017-01-31] MEDS ORDERED: CHOLECALCIFEROL 1000 INTER.UNIT TAB PO SCH (08:00)
[2017-01-31] MEDS: INSULIN ASPART 100 UNITS/ML 3 ML PEN SC SCH (09:02)
[2017-01-31] MEDS ORDERED: ERGO500011 PO (10:11)
[2017-01-31] MEDS ORDERED: VTMD1000 PO (10:11)
--- NOTE | 2017-01-31 10:14 | Discharge Instructions ---
Discharge Instructions Date of Service Jan 31, 2017. Admission Reason for Admission: SBO Discharge Discharge Diagnosis / Problem: small bowel obstruction - resolved Discharge Goals Goal(s): Diagnostic testing, Therapeutic intervention Activity Recommendations Activity Limitations: resume your previous activity . Instructions / Follow-Up Instructions / Follow-Up vitamin D replacement: take BOTH the drisdol (ergocalciferol) once a week for 12 weeks AND the D3 ( cholecalciferol) 2000 IU daily --- then have Lisette repeat D levels in about 3 months to see if we've replaced well enough. you'll likely need the D3 indefinitely, but the drisdol is hopefully a short-term medication. after the recheck in 3 months, have Lisette check again in the middle of winter - since we get most of our natural vitamin D through sun exposure, [place] in the middle of winter (from about to october first, you almost can't make any vitamin D if you live north of around [facility]). if you're low in the middle of winter, she'll need to guide on more aggressive replacement; if you're good in the middle of winter, then it's a nice signs that you're probably going to be good year round Current Hospital Diet Patient's current hospital diet: Regular Diet, Low Fiber Diet Discharge Diet Recommended Diet: Regular Diet (as we discussed, working towards a diet predominantly fruits and vegetables, lean meats, and low in saturated fats/ starchy/bready/sugary carbs) Pending Studies Studies pending at discharge: no Medical Emergencies . Who to Call and When: Medical Emergencies: If at any time you feel your situation is an emergency, please call 911 immediately. . Non-Emergent Contact Non-Emergency issues call your: Primary Care Provider . . "Provider Documentation" section prepared by Vinicio Pabon. . VTE Core Measure Inpt VTE Proph given/why not?: Unfractionated heparin SQ
[2017-01-31 11:47] VITALS: BP 137/84; PULSE 79; TEMP 36.5; O2SAT 92
[2017-01-31 12:04] VITALS: BP 137/84; PULSE 72; TEMP 36.7; O2SAT 97
--- NOTE | 2017-01-31 15:39 | Discharge Summary ---
Discharge Summary Date of Service Jan 31, 2017. Discharge Summary Admission Date: Jan 28, 2017 at 01:37 Discharge Date: Jan 31, 2017 Discharge Disposition: Home Principal Diagnosis: adhesional SBO Procedures: ABDOMEN AND PELVIS CT WITHOUT CONTRAST CT DOSE: 1870.61 mGy.cm HISTORY: Pain abdominal pain, vomiting, history of colon surgery. No BM TECHNIQUE: Multiaxial CT images of the abdomen and pelvis were performed without the use of intravenous and oral contrast according to the standard department stone protocol. COMPARISON STUDY: None. FINDINGS: Lung bases are generally clear. Liver spleen and pancreas are unremarkable. The adrenal glands are normal. Prior cholecystectomy. The colonic bowel pattern is nonobstructive. There are findings of a mid sigmoid anastomotic site. There are findings of a small ventral hernia. There are several distended loops of small bowel in the anterior central abdominal region. Mild infiltrative change of the mesentery is noted at this site. These findings are potentially post operative and/or related to a partial small bowel obstructive process secondary to adhesions. Postoperative changes to the anterior abdominal wall are noted. There is no evidence for colonic distention. IMPRESSION: 1. Several mildly distended loops of small bowel in the anterior central abdominal region 2. These are associated with mild infiltrative change of the mesentery possibly on a postoperative basis as well as a small ventral hernia anteriorly raising the possibility of post procedural adhesions. 3. No evidence for colonic obstruction with postoperative changes noted in the mid sigmoid. Electronically signed by: Cheo Tovar M.D. 01/27/2017 10:42 PM Dictated Date/Time: 01/27/2017 10:36 PM vitamin D ~10.8 Last Resulted CBC 01/31/17 05:42 Last Resulted BMP 01/29/17 05:27 Medication Reconciliation New Medications: Cholecalciferol (Vitamin D3) 1,000 Inter.unit Tab 2000 INTER.UNIT PO QAM, #30 TAB Ergocalciferol (Vitamin D 32006 Unit) 50,000 Unit Cap 43405 INTERUNIT PO WK, #12 CAP Continued Medications: Atorvastatin (Atorvastatin Calcium) 20 Mg Tab 10 MG PO HS, #90 Insulin Aspart (Novolog Penfill) 100 Unit/ Inj 32 UNITS SC BID, BTL Insulin Aspart Penfill (Novolog Penfill) Inj 44 SC QAM, BTL Insulin Detemir (Levemir Flextouch) 100 Unit/Ml Inj 45 UNITS SQ HS, #45 Liraglutide (Victoza) 18 Mg/3 Ml Inj 1.8 ML INJ QPM Discharge Exam Physical Exam: General Appearance: no apparent distress Eyes: EOMI ENT: hearing grossly normal Neck: trachea midline Respiratory/Chest: no respiratory distress, no accessory muscle use Extremities: normal inspection Skin: normal color, warm/dry Hospital Course SBO: almost certainly adhesional. clinically behaving as such. if it was malignancy related, doubt it would've improved. hernia did not appear incarcerated on CT, exam has been reassuring in that respect. did great advancing diet - stable for home, outpatient f/u Vit D Deficiency: Will replace Vit D -- 2000IU D3 daily, 50,000 IU D2 weekly for ~12wks then recheck, then check again in winter Headaches: likely dehydration, seems to be lessening, no neurologic s/s HTN: continue to follow as outpt - d/w pt to check periodically at home or at store - bring numbers to PCP. suspect baseline HTN given #'s while in hospital , but since stress/SBO/etc would rather have ambulatory monitoring than starting meds Code status: Full VTE: Heparin Total Time Spent: Greater than 30 minutes This includes examination of the patient, discharge planning, medication reconciliation, and communication with other providers. Discharge Instructions Please refer to the electronic Patient Visit Report (Discharge Instructions) for additional information. Additional Copies To Mery Gamez
== END 2017-01-31 12:47 | disposition home or self-care (01) | DRG 390 ==
LOC: C.EDB 20:03 → C.2T 01-28 01:37 → ENRESERV 01-28 01:50 → C.4E 01-28 11:11
PROVIDERS: ADMIT Family Medicine; ATTEND Family Medicine
DX: K56.5 Intestinal adhesions [bands] with obstruction (postinfection) (principal); E11.9 Type 2 diabetes mellitus without complications; R51 Headache; E86.0 Dehydration; I10 Essential (primary) hypertension; E78.00 Pure hypercholesterolemia, unspecified; Z85.038 Personal history of other malignant neoplasm of large intestine; Z79.899 Other long term (current) drug therapy; Z79.4 Long term (current) use of insulin; Z79.84 Long term (current) use of oral hypoglycemic drugs